=== PATIENT | female | born 1995 | race Caucasian/White ===

== ENCOUNTER 2022-01-11 15:42 | Emergency (ER) | payer OTHER ==
[2022-01-11 15:58] VITALS: BP 127/66; PULSE 90; RESP 17; TEMP 98.4; BMI 28.1
[2022-01-11] MEDS ORDERED: ACETAMINOPHEN 500 MG TABLET (FP) PO ONE (17:54)
[2022-01-11] MEDS ORDERED: LIDOCAINE 5% TOPICAL PATCH TP ONE (17:54)
[2022-01-11] MEDS ORDERED: ACETAMINOPHEN 325 MG TABLET (FP) ONE (18:00)
[2022-01-11] MEDS ORDERED: LIDOCAINE 5% TOPICAL PATCH ONE (18:00)
[2022-01-11 19:37] LABS: EPI CELLS 20 /uL (0-25.1); HYALINE CASTS 1 /uL (0-3.1); PH,URINE 5.5 (5.0-8.0); URINE APPEARANCE CLEAR; URINE BACTERIA 72 /uL (0-1359); URINE BILIRUBIN NEGATIVE (NEGATIVE); URINE COLOR YELLOW; URINE GLUCOSE (UA) NEGATIVE (NEGATIVE); URINE KETONE TRACE (NEGATIVE); URINE LEUK ESTERASE 1+ (NEGATIVE); URINE NITRITE NEGATIVE (NEGATIVE); URINE PROTEIN NEGATIVE (NEGATIVE); URINE RBC 6 /uL (0-23.9); URINE UROBILINOGEN 0.2 mg/dL (0.2-1.0); URINE WBC 67 /uL (0-25.8)
[2022-01-12] MEDS ORDERED: LIDOCAINE PATCH REMOVAL MC SCH (06:00)
== END 2022-01-11 20:03 | disposition home or self-care (01) ==
LOC: JER 15:42
DX: O9A.212 Injury, poisoning and certain other consequences of external causes complicating pregnancy, second trimester (principal); M54.42 Lumbago with sciatica, left side; Y04.8XXA Assault by other bodily force, initial encounter; Z3A.19 19 weeks gestation of pregnancy
CPT/HCPCS: 76815; 81003; 99284-25